=== PATIENT | male | born 1950 ===

== ENCOUNTER 2018-04-22 13:05 | Emergency (ER) | payer MEDICAID, OTHER ==
[2018-04-22 13:20] VITALS: BMI 22.4
--- NOTE | 2018-04-22 14:14 | ED PDOC ---
Arrival/HPI - General Chief Complaint: Trauma Time Seen by Provider: 04/22/18 13:14 Historian: Patient - History of Present Illness Narrative History of Present Illness (Text): 04/22/18 14:11 67yo male with no pmhx who was bib EMS for complaint of lower back pain, b/l elbow pain , left shoulder and right wrist pain s/p trauma this afternoon. States he slipped and fell, landing on his back. Notes hitting his head on the ground. States pain is worse on his lower back, worse with movement. Denies LOC, focal weakness, urinary/fecal incontinence, dizziness, nausea, vomiting, abdominal pain, chest pain, any other complaint. Past Medical History - Provider Review Nursing Documentation Reviewed: Yes - Infectious Disease Hx of Infectious Diseases: None - Cardiac Hx Cardiac Disorders: No - Pulmonary Hx Respiratory Disorders: No - Neurological Hx Neurological Disorder: No - HEENT Hx HEENT Disorder: No - Renal Hx Renal Disorder: No - Endocrine/Metabolic Hx Endocrine Disorders: No - Hematological/Oncological Hx Blood Disorders: No - Integumentary Hx Dermatological Disorder: No - Musculoskeletal/Rheumatological Hx Musculoskeletal Disorders: Yes Hx Arthritis: Yes (KNEES AND HANDS) - Gastrointestinal Hx Gastrointestinal Disorders: Yes (6--16 SBO (SMALL BOWEL OBSTRUCTION)) - Genitourinary/Gynecological Hx Genitourinary Disorders: No - Psychiatric Hx Psychophysiologic Disorder: No Hx Substance Use: No - Surgical History Other/Comment: knee sx/abd surgery 20 yrs ago Family/Social History - Physician Review Nursing Documentation Reviewed: Yes Family/Social History: Unknown Family HX Smoking Status: Former Smoker Hx Alcohol Use: Yes (WINE 1-2 X A WEEK) Frequency of alcohol use: Socially Hx Substance Use: No Allergies/Home Meds Allergies/Adverse Reactions: Allergies No Known Allergies Allergy (Verified 04/22/18 13:20) Review of Systems - Physician Review All systems were reviewed & negative as marked: Yes - Review of Systems Constitutional: Normal Eyes: Normal ENT: Normal Respiratory: Normal Cardiovascular: Normal Gastrointestinal: Normal Genitourinary Male: Normal Musculoskeletal: Arthralgias (B/L elbow, left shoulder and right wrsit), Back Pain Skin: Normal Neurological: Normal Endocrine: Normal Hemo/Lymphatic: Normal Psychiatric: Normal Physical Exam Vital Signs Reviewed: Yes Vital Signs Temp Pulse Resp BP Pulse Ox 04/22/18 13:19 97.6 F 58 L 19 133/66 99 Temperature: Afebrile Blood Pressure: Normal Pulse: Regular Respiratory Rate: Normal Appearance: Positive for: Well-Appearing, Non-Toxic, Comfortable Pain Distress: None Mental Status: Positive for: Alert and Oriented X 3 - Systems Exam Head: Present: Atraumatic, Normocephalic Pupils: Present: PERRL Extroacular Muscles: Present: EOMI Conjunctiva: Present: Normal Mouth: Present: Moist Mucous Membranes Neck: Present: Normal Range of Motion Respiratory/Chest: Present: Clear to Auscultation, Good Air Exchange. No: Respiratory Distress, Accessory Muscle Use Cardiovascular: Present: Regular Rate and Rhythm, Normal S1, S2. No: Murmurs Abdomen: No: Tenderness, Distention, Peritoneal Signs Back: Present: Paraspinal Tenderness (Diffuse paralumbar tenderness). No: Pain with Leg Raise Upper Extremity: Present: Normal ROM, NORMAL PULSES, Tenderness (B/L elbow and left shoulder), Neurovascularly Intact. No: Cyanosis, Edema, Swelling, Deformity Lower Extremity: Present: Normal Inspection. No: Edema Neurological: Present: GCS=15, CN II-XII Intact, Speech Normal, Motor Func Grossly Intact, Normal Sensory Function Skin: Present: Warm, Dry, Normal Color, Abrasion (Abrasion noted over the right wrist/thenar prominence). No: Rashes Psychiatric: Present: Alert, Oriented x 3, Normal Insight, Normal Concentration Medical Decision Making ED Course and Treatment: 04/22/18 17:07 67yo male in ED for lower back, b/l elbow, left shoulder and right wrist pain s/p trauma today. Tramadol Head CT LS/wrist/elbow/shoulder xray All xray was negative for acute fracture Head CT - Negative Pt was ambulatory and neurologically intact in ED. Wound was irrigated and bacitracine applied. Result was DW the pt and she was referred to ortho. Ibuprofen given for pain control. - RAD Interpretation Radiology Orders: 04/22/18 13:31 SHOULDER LEFT [RAD] Stat 04/22/18 13:32 ELBOW LEFT 3 VIEWS ROUTINE [RAD] Stat ELBOW RIGHT 3 VIEWS ROUTINE [RAD] Stat 04/22/18 13:33 LS SPINE WITH OBL > 18 YRS OLD [RAD] Stat 04/22/18 13:34 HEAD W/O CONTRAST [CT] Stat - Medication Orders Current Medication Orders: Discontinued Medications Tramadol HCl (Ultram) 50 mg PO STAT STA Stop: 04/22/18 13:42 Last Admin: 04/22/18 14:05 Dose: 50 mg MAR Pain Assessment Document 04/22/18 14:05 SRE (Rec: 04/22/18 14:05 SRE [id number]) Pain Reassessment Is this a pain reassessment? Yes Sleep Is patient sleeping during reassessment? No Presence of Pain Presence of Pain Yes Pain Scale Used Protocol: PSCALES Pain Scale Used Numeric Disposition/Present on Arrival - Present on Arrival Any Indicators Present on Arrival: No History of DVT/PE: No History of Uncontrolled Diabetes: No Urinary Catheter: No History of Decub. Ulcer: No History Surgical Site Infection Following: None - Disposition Have Diagnosis and Disposition been Completed?: Yes Diagnosis: Shoulder pain, Elbow sprain, Wrist pain, Abrasion Disposition: HOME/ ROUTINE Disposition Time: 16:15 Patient Plan: Discharge Patient Problems: Current Active Problems Problem Status Onset Abrasion Acute Elbow sprain Acute Shoulder pain Acute Wrist pain Acute Condition: STABLE Discharge Instructions (ExitCare): Wrist Sprain (DC), Skin Abrasions, Elbow Sprain (DC), Shoulder Pain (DC) Additional Instructions: Follow up with your doctor/Orthopedist Keep wound clean and dry Return to ED for any new or worsening symptoms Prescriptions: Bacitracin Ointment [Bacitracin] 30 gm TOP BID #1 tube Ibuprofen [Motrin Tab] 600 mg PO Q6 #20 tab Lidocaine 5% [Lidoderm] 1 each TP DAILY #10 patch Referrals: Javier Aranda MD [Staff Provider] - Follow up with primary Forms: [employer] ([place] [employer])
--- NOTE | 2018-04-22 15:04 | CT ---
Date of service: 04/22/2018 PROCEDURE: CT HEAD WITHOUT CONTRAST. HISTORY: s/p head trauma COMPARISON: None available. TECHNIQUE: Axial computed tomography images were obtained through the head/brain without intravenous contrast. Radiation dose: Total exam DLP = 896.41 mGy-cm. This CT exam was performed using one or more of the following dose reduction techniques: Automated exposure control, adjustment of the mA and/or kV according to patient size, and/or use of iterative reconstruction technique. FINDINGS: HEMORRHAGE: No intracranial hemorrhage. BRAIN: No mass effect or edema. No atrophy or chronic microvascular ischemic changes. VENTRICLES: Unremarkable. No hydrocephalus. CALVARIUM: Unremarkable. PARANASAL SINUSES: Unremarkable as visualized. No significant inflammatory changes. MASTOID AIR CELLS: Unremarkable as visualized. No inflammatory changes. OTHER FINDINGS: None. IMPRESSION: No acute intracranial abnormalities
--- NOTE | 2018-04-22 16:00 | RAD ---
Date of service: 04/22/2018 PROCEDURE: Right Wrist Radiographs. HISTORY: wrist pain s/p trauma COMPARISON: None. FINDINGS: BONES: Normal. No fracture. JOINTS: Normal. No dislocation. SOFT TISSUES: Normal. OTHER FINDINGS: None. IMPRESSION: Normal right wrist radiographs.
--- NOTE | 2018-04-22 16:01 | RAD ---
Date of service: 04/22/2018 PROCEDURE: Radiographs of the right elbow. HISTORY: elbow pain s/p trauma COMPARISON: No prior. FINDINGS: BONES: Normal. No fracture. JOINTS: Moderate degenerative changes are seen with osteophytes. SOFT TISSUES: Normal. JOINT EFFUSION: None. OTHER FINDINGS: None. IMPRESSION: No acute fracture
--- NOTE | 2018-04-22 16:02 | RAD ---
Date of service: 04/22/2018 PROCEDURE: Radiographs of the left elbow. HISTORY: elbow pain s/p trauma COMPARISON: No prior. FINDINGS: BONES: Normal. No fracture. JOINTS: Normal. No osteoarthritis. SOFT TISSUES: Normal. JOINT EFFUSION: None. OTHER FINDINGS: None IMPRESSION: Unremarkable radiographs of the left elbow.
--- NOTE | 2018-04-22 16:03 | RAD ---
Date of service: 04/22/2018 PROCEDURE: Radiographs of the Left Shoulder HISTORY: shoulder pain s/p trauma COMPARISON: No prior. FINDINGS: BONES: Normal. No fracture. JOINTS: Glenohumeral and acromioclavicular articulations appear intact. There is globular calcification adjacent to the greater tuberosity consistent with calcific tendinitis. SOFT TISSUES: Normal. OTHER FINDINGS: None. IMPRESSION: Calcific tendinitis. Otherwise unremarkable.
--- NOTE | 2018-04-22 16:03 | RAD ---
Date of service: 04/22/2018 PROCEDURE: Radiographs of the Lumbar Spine. HISTORY: back pain s/p trauma COMPARISON: No prior. FINDINGS: BONES: Normal alignment. No listhesis. No fracture. DISC SPACES: Unremarkable. OTHER FINDINGS: Large bridging osteophytes are seen throughout the lumbar spine. IMPRESSION: No acute findings
[2018-04-22 17:10] VITALS: BP 128/70; PULSE 60; RESP 18; TEMP 98; O2SAT 98
== END 2018-04-22 16:00 | disposition home or self-care (01) ==
LOC: ED 13:05
DX: S53.402A Unspecified sprain of left elbow, initial encounter (principal); W01.0XXA Fall on same level from slipping, tripping and stumbling without subsequent striking against object, initial encounter; M25.512 Pain in left shoulder; M25.531 Pain in right wrist; Z87.891 Personal history of nicotine dependence